=== PATIENT | male | born 1950 | race Caucasian/White ===

== ENCOUNTER 2017-05-08 16:05 | Emergency (ER) | payer BC, OTHER ==
[~2017-05-08] VITALS: Ht 185.4 cm; Wt 114.9 kg
[~2017-05-08 16:05] MED LIST: LIDODERM 5% P1 PATCH TD; MOBIC15 MG PO; PERCOCET 7.51 TABLET PO; PREDNISONE20 MG PO; VALIUM5 MG PO
[2017-05-08 17:08] LABS: HEMATOCRIT 40.5 % (38.0-50.0); HEMOGLOBIN 13.8 G/DL (12.5-16.6); MCH 31.2 PG (29.0-34.0); MCHC 34.1 G/DL (30.0-36.0); MCV 91.4 FL (86-99); PLATELET COUNT 343 K/uL (156-360); RBC DIS.WIDTH-SD 43.6 % (39-53); RED BLOOD COUNT 4.43 M/uL (4.00-5.50)
[2017-05-08 17:17] LABS: CHLORIDE 102 mEq/L (99-109); POTASSIUM 3.4 mEq/L (3.7-5.4); SODIUM 138 mEq/L (136-147)
[2017-05-08 17:18] LABS: GLUCOSE 110 mg/dL (70-99)
[2017-05-08 17:22] LABS: CREATININE 1.1 mg/dL (0.6-1.3); GFR ESTIMATE (CALCULATED) > 59 mL/min/ (58.99-99999)
[2017-05-08 17:23] LABS: UREA NITROGEN (BUN) 23 mg/dL (9-23)
[2017-05-08] MEDS ORDERED: TESSALON PERLE100 MG PO (20:03)
[2017-05-08] MEDS ORDERED: ZITHROMAX250 MG PO (20:03)
[2017-05-08 21:02] VITALS: BP 156/69
== END 2017-05-08 21:06 | disposition home or self-care (01) ==
LOC: EME 16:05
DX: J40 Bronchitis, not specified as acute or chronic (principal)
CPT/HCPCS: 71020; 80048; 85027; 87502; 87651 90; 94640; 99281; 99284